=== PATIENT | female | born 1960 | race African-American/Black ===

== ENCOUNTER 2019-05-26 02:31 | Emergency (ER) | payer MEDICAID ==
[~2019-05-26] VITALS: Ht 162.6 cm; Wt 77.0 kg
[~2019-05-26 02:31] MED LIST: NONE REPORTED
[2019-05-26] MEDS ORDERED: KETOROLAC 30MG/ML VIAL IV STA (05:41)
[2019-05-26 06:08] LABS: BASOPHILS % 0.8 % (0.0-2.0); EOSINOPHILS % 2.8 % (0.0-5.0); HEMATOCRIT. 31.8 % (36.0-48.0); HEMOGLOBIN. 10.5 g/dL (12.0-16.0); LYMPHOCYTES % 38.3 % (20.0-50.0); MEAN CORPUSCULAR VOLUME 85.2 fL (81.0-99.0); MEAN PLATELET VOLUME 7.7 fl (7.4-10.4); MONOCYTES % 9.9 % (2.0-8.0); NEUTROPHILS % 48.2 % (40.0-76.0); PLATELET 512 x1000/uL (130-400); RED BLOOD CELL COUNT 3.74 mill/uL (4.2-5.4); RED CELL DISTRIBUTION WIDTH 13.5 % (11.6-14.6)
[2019-05-26 06:13] LABS: CHLORIDE 110 mEq/L (98-107)
[2019-05-26 06:19] LABS: C REACTIVE PROTEIN QUANT 5.2 mg/L (0.0-3.0)
[2019-05-26 08:23] VITALS: BP 152/89
== END 2019-05-26 08:25 | disposition home or self-care (01) ==
LOC: ER 02:31
DX: Z48.00 Encounter for change or removal of nonsurgical wound dressing (principal); M25.551 Pain in right hip; Z98.890 Other specified postprocedural states
CPT/HCPCS: 36415; 73502; 80053; 83605; 85025; 85651; 86140; 87040; 96374; 99284; J1885

== ENCOUNTER 2023-08-31 19:49 | Emergency (ER) | payer MEDICAID ==
[~2023-08-31] VITALS: Ht 162.6 cm; Wt 86.0 kg
[2023-08-31 19:59] VITALS: TEMP 98.2; O2SAT 99
[2023-08-31 23:25] VITALS: BP 134/76; PULSE 72; RESP 18
[2023-08-31] MEDS: OXYCODONE HCL/ACETAMINOPHEN 5/325MG TABLET PO ONE (23:25)
[2023-08-31] MEDS: KETOROLAC 60MG/2ML VIAL IM ONE (23:25)
[2023-09-01] MEDS ORDERED: OXYC-105 MT (01:58)
[2023-09-01] MEDS ORDERED: METH4TAB3 MT (02:12)
== END 2023-09-01 05:53 | disposition home or self-care (01) ==
LOC: ER 20:18
DX: G89.29 Other chronic pain (principal); M54.50 Low back pain, unspecified
CPT/HCPCS: 99285; 72131; 72100; 96372; J1885